=== PATIENT | female | born 2000 | race Caucasian/White ===

== ENCOUNTER 2019-09-29 12:36 | Emergency (ER) | payer BC, OTHER ==
[~2019-09-29] VITALS: Ht 165.1 cm; Wt 95.3 kg
[2019-09-29] MEDS ORDERED: CYCLOBENZAPRINE10 MG PO ×2 (14:30→14:48)
[2019-09-29] MEDS ORDERED: IBU800 MG PO ×2 (14:30→14:48)
== END 2019-09-29 14:51 | disposition home or self-care (01) ==
LOC: ED 12:36
DX: M43.6 Torticollis (principal); X58.XXXA Exposure to other specified factors, initial encounter; Y93.89 Activity, other specified; Y92.89 Other specified places as the place of occurrence of the external cause; Y99.8 Other external cause status